=== PATIENT | male | born 1950 | race Caucasian/White ===

== ENCOUNTER 2021-08-31 21:45 | Observation (INO) ==
[2021-08-31 22:34] LABS: Bilirubin,Urine Negative (Negative); Blood, Urine Negative (Negative); Glucose,Urine (UA) Negative (Negative); Ketones,Urine Negative (Negative); Nitrite,Urine Negative (Negative); Protein,Urine 30 MG/DL; RBC,Urine 2 /HPF (0-4); Urine Appearance CLEAR (Clear); Urine Color Yellow (Yellow); Urine Specific Gravity 1.019 (1.001-1.035); Urine Urobilinogen < 2.0 EU/DL (<2.0)
[2021-08-31 22:46] LABS: Basophils # 0.1 10*3/uL (0.0-0.2); Basophils % 1.2 % (0.0-0.8); Eosinophils # 0.6 10*3/uL (0.0-0.87); Eosinophils % 6.1 % (0.00-10.9); Hematocrit 41.6 VOL% (42.0-52.0); Hemoglobin 13.3 GM/DL (14.0-18.0); Immature Granulocytes % 0.6 %; Immature Granulocytes Absolute 0.05 #; Lymphocytes # 1.8 10*3/uL (1.4-4.0); Lymphocytes % 20.3 % (21.2-54.2); Mean Corpuscular Volume 98.8 FL (87-102); Mean Platelet Volume 9.2 FL (9.6-12.0); Monocytes % 11.7 % (1.7-12.7); Neutrophils % 60.1 % (38.7-73.9); Platelet Count 293 T/CUMM (130-400); Red Blood Count 4.21 MC/CUMM (3.8-5.5); Red Cell Distribution Width 12.6 % (9.3-17.3); White Blood Count 9.1 T/CUMM (4-12)
[2021-08-31 23:01] LABS: Calcium 9.2 MG/DL (8.5-10.1)
[2021-08-31] MEDS ORDERED: ASPIRIN EC 325 MG TABLET PO STA (23:08)
[2021-08-31] MEDS ORDERED: ENOXAPARIN 30 MG/0.3 ML SYRINGE SUBCUT STA (23:11)
[2021-08-31] MEDS ORDERED: ENOXAPARIN 40 MG/0.4 ML SYRINGE ONE (23:26)
[2021-08-31] MEDS ORDERED: NITROGLYCERIN SL 0.4 MG TABLET SL PRN (23:54)
[2021-08-31] MEDS ORDERED: GLUCAGON 1 MG VIAL IM PRN (23:54)
[2021-08-31] MEDS ORDERED: ONDANSETRON 4 MG/2 ML VIAL IV PRN (23:54)
[2021-08-31] MEDS ORDERED: ACETAMINOPHEN 325 MG TABLET PO PRN (23:54)
[2021-08-31] MEDS ORDERED: MORPHINE 2 MG/1 ML SYRINGE IV PRN (23:54)
[2021-08-31 23:57] LABS: Alanine Aminotransferase 26 U/L (16-61); Albumin 3.4 G/DL (3.4-5.0); Alkaline Phosphatase 101 U/L (45-117); Aspartate Amino Transferase 24 U/L (0-37); Bilirubin,Total < 0.39 MG/DL (0.20-1.00); Blood Urea Nitrogen 27 MG/DL (7-18); Calcium 9.2 MG/DL (8.5-10.1); Carbon Dioxide 27 MMOL/L (21-32); Estimated Glom Filtration Rate 50 ML/MIN; Glucose 141 MG/DL (74-106); Sodium 143 MMOL/L (136-145); Total Protein 7.4 G/DL (6.4-8.2)
[2021-09-01] MEDS ORDERED: DEXTROSE 50% 25 GM/50 ML SYRINGE IV PRN (00:10)
[2021-09-01] MEDS: ALBUTEROL/IPRATROPIUM 3 ML NEB RESP TX SCH ×4 (00:29→20:58)
[2021-09-01] MEDS: SODIUM CHLORIDE 0.45% 1,000 ML IV SCH ×3 (00:35→21:27)
[2021-09-01] MEDS ORDERED: NICOTINE 14 MG/24 HR PATCH TRANSDERM PRN (01:03)
[2021-09-01 01:23] LABS: CKMB % 3.8 %
[2021-09-01 01:33] LABS: High Sensitive Troponin I* 1408.6 ng/L (0-78)
[2021-09-01 05:41] LABS: PT Patient Result 10.9 SECS (10.5-12.0); Partial Thromboplastin Time 37.6 SECS (23.8-32.1)
[2021-09-01 06:31] LABS: Basophils # 0.1 10*3/uL (0.0-0.2); Basophils % 1.1 % (0.0-0.8); Eosinophils # 0.5 10*3/uL (0.0-0.87); Eosinophils % 5.8 % (0.00-10.9); Hematocrit 40.6 VOL% (42.0-52.0); Hemoglobin 12.9 GM/DL (14.0-18.0); Immature Granulocytes % 0.5 %; Immature Granulocytes Absolute 0.04 #; Lymphocytes # 1.9 10*3/uL (1.4-4.0); Lymphocytes % 21.7 % (21.2-54.2); Mean Corpuscular HGB Conc 31.8 GM/DL (32-36); Mean Platelet Volume 9.4 FL (9.6-12.0); Monocytes % 13.6 % (1.7-12.7); Neutrophils % 57.3 % (38.7-73.9); Platelet Count 260 T/CUMM (130-400); Red Cell Distribution Width 12.4 % (9.3-17.3); White Blood Count 8.7 T/CUMM (4-12)
[2021-09-01 06:46] LABS: CKMB % 9.7 %
[2021-09-01 07:19] LABS: Risk Ratio 3.26; VLDL Cholesterol 13.4 MG/DL
[2021-09-01] MEDS ORDERED: DIAZEPAM 5 MG TABLET PO ONE (07:43)
[2021-09-01] MEDS ORDERED: diphenhydrAMINE CAP 50 MG CAPSULE PO ONE (07:43)
[2021-09-01] MEDS ORDERED: LIDOCAINE 1% 20 ML VIAL ONE (08:34)
[2021-09-01] MEDS ORDERED: HEPARIN/NACL 0.9% 2 UNITS/ML 2,000 UNIT/1,000 ML BAG IV ONE (08:34)
[2021-09-01] MEDS ORDERED: fentaNYL 100 MCG/2 ML VIAL ONE (08:35)
[2021-09-01] MEDS ORDERED: MIDAZOLAM 2 MG/2 ML VIAL ONE (08:35)
[2021-09-01] MEDS ORDERED: VERAPAMIL 5 MG/2 ML VIAL ONE (08:55)
[2021-09-01] MEDS ORDERED: NITROGLYCERIN DRIP 50 MG/250 ML BOTTLE IV ONE (08:55)
[2021-09-01] MEDS ORDERED: ATORVASTATIN 40 MG TABLET PO SCH (09:00)
[2021-09-01] MEDS ORDERED: ASPIRIN EC 325 MG TABLET PO SCH (09:00)
[2021-09-01 10:36] LABS: CKMB % 9.7 %
[2021-09-01 10:39] LABS: High Sensitive Troponin I* 4190.9 ng/L (0-78)
[2021-09-01] MEDS ORDERED: ENOXAPARIN 80 MG/0.8 ML SYRINGE SUBCUT SCH (11:00)
[2021-09-01] MEDS: MONTELUKAST 10 MG TABLET PO SCH (12:52)
[2021-09-01] MEDS: METOPROLOL TARTRATE 25 MG TABLET PO SCH ×2 (12:53→21:20)
[2021-09-01] MEDS: PANTOPRAZOLE 40 MG TABLET PO SCH (12:53)
[2021-09-01] MEDS: TAMSULOSIN 0.4 MG CAPSULE PO SCH (12:53)
[2021-09-01] MEDS: lisinopriL 10 MG TABLET PO SCH (12:53)
[2021-09-01] MEDS: Fluticasone Furoate-Vilanterol [Breo Ellipta] INH SCH (13:00)
[2021-09-01] MEDS ORDERED: diphenhydrAMINE CAP 25 MG CAPSULE PO PRN (14:33)
[2021-09-01] MEDS ORDERED: ATORVASTATIN 80 MG TABLET PO SCH (21:00)
[2021-09-01] MEDS: ASCORBIC ACID 500 MG TABLET PO SCH (21:20)
[2021-09-02] MEDS: SODIUM CHLORIDE 0.45% 1,000 ML IV SCH (00:55)
[2021-09-02] MEDS: ALBUTEROL/IPRATROPIUM 3 ML NEB RESP TX SCH ×2 (02:25→08:36)
[2021-09-02] MEDS ORDERED: DEXTROSE 10% 250 ML BAG IV PRN (02:33)
[2021-09-02 05:35] LABS: Basophils # 0.1 10*3/uL (0.0-0.2); Basophils % 1.1 % (0.0-0.8); Eosinophils # 0.5 10*3/uL (0.0-0.87); Hematocrit 38.6 VOL% (42.0-52.0); Immature Granulocytes % 0.5 %; Immature Granulocytes Absolute 0.05 #; Lymphocytes # 1.8 10*3/uL (1.4-4.0); Mean Corpuscular HGB Conc 31.1 GM/DL (32-36); Mean Corpuscular Volume 100.3 FL (87-102); Mean Platelet Volume 9.3 FL (9.6-12.0); Neutrophils % 63.4 % (38.7-73.9); Platelet Count 235 T/CUMM (130-400); Red Blood Count 3.85 MC/CUMM (3.8-5.5); Red Cell Distribution Width 12.5 % (9.3-17.3); White Blood Count 9.3 T/CUMM (4-12)
[2021-09-02 06:02] LABS: Calcium 8.2 MG/DL (8.5-10.1); Osmolality,Calculated 282.3 MOS/KG (273-304); Potassium 5.1 MMOL/L (3.5-5.1)
[2021-09-02 07:36] LABS: High Sensitive Troponin I* 3485.5 ng/L (0-78)
[2021-09-02 07:57] VITALS: BP 153/86
[2021-09-02] MEDS: TAMSULOSIN 0.4 MG CAPSULE PO SCH (08:47)
[2021-09-02] MEDS: ASCORBIC ACID 500 MG TABLET PO SCH (08:47)
[2021-09-02] MEDS: MONTELUKAST 10 MG TABLET PO SCH (08:47)
[2021-09-02] MEDS: PANTOPRAZOLE 40 MG TABLET PO SCH (08:47)
[2021-09-02] MEDS: lisinopriL 10 MG TABLET PO SCH (08:47)
[2021-09-02] MEDS: METOPROLOL TARTRATE 25 MG TABLET PO SCH (08:47)
[2021-09-02] MEDS: Fluticasone Furoate-Vilanterol [Breo Ellipta] INH SCH (08:57)
[2021-09-02] MEDS ORDERED: ASPIRIN EC 81 MG TABLET PO SCH (09:00)
== END 2021-09-02 10:06 | disposition home or self-care (01) ==
LOC: N.EDINP 21:45 → N.ED 21:45 → SUATTDRO 23:54 → N.TELEN 09-01 02:42
PROVIDERS: ADMIT Internal Medicine; ATTEND Hospitalist